=== PATIENT | female | born 1985 | race African-American/Black ===

== ENCOUNTER 2018-10-01 10:46 | Outpatient (CLI) | payer OTHER ==
--- NOTE | 2018-10-01 12:18 | Ultrasound Report ---
BILATERAL DIGITAL DIAGNOSTIC MAMMOGRAM WITH CAD -- 10/01/2018 RIGHT LIMITED BREAST ULTRASOUND INDICATION: History of right breast mass for several years, increasing in size, previously recommende d for biopsy TECHNIQUE: Digital bilateral mammographic imaging was performed. Limited ultrasound was performed. T his examination was interpreted with the benefit of Computer-Aided Detection (CAD) analysis. COMPARISON: None available FINDINGS: Breast Density: The breasts are extremely dense, which lowers the sensitivity of mammography. There is no evidence of dominant mass, suspicious calcifications or architectural distortion in the l eft breast. A huge lobular mass is seen in the area of palpable concern in the 12:00 position of the right breast measuring roughly 10.8 cm in length. Borders in most areas appear smoothly demarcated th ough due to the prominent surrounding breast density not all borders are well evaluated. Ultrasound Findings: Targeted ultrasound evaluation was performed of the area of interest. The huge palpable mass is noted sonographically in the 12:00 position. Due to the size measurements are diffi cult but this is seen to measure at least 5.2 cm in length. Borders appear lobular but in most areas are smoothly demarcated. Internal density of this solid mass is heterogenous. A central area of shado wing is seen but most of the mass does not show shadowing and some through transmission is noted. IMPRESSION: Huge lobular mass is seen in the area of palpable concern. Though this could be a giant f ibroadenoma, biopsy is recommended. BI-RADS Category 4: Suspicious for Malignancy. A "normal" or negative report should not discourage follow up or biopsy of a clinically significant f inding. A written summary of these findings will be mailed to the patient. The patient will be entered into a mammography reporting system which will generate a reminder letter for the patient's next appointmen t at the appropriate interval. According to the [employer], yearly mammograms are recommended starting at age 40 and continuing as long as a woman is in good health. Breast MRI is recommended for women with an wayne roximately 20-25% or greater lifetime risk of breast cancer, including women with a strong family his tory of breast or ovarian cancer and women who have been treated for Hodgkin's disease. Signer Name: Chris Shah MD Signed: 10/01/2018 12:13 PM Workstation Name: [id number]
== END 2018-10-01 10:47 | disposition home or self-care (01) ==
LOC: SPVWC 10:46
PROVIDERS: ATTEND Family Medicine
DX: N63.41 Unspecified lump in right breast, subareolar (principal)
CPT/HCPCS: 77066

== ENCOUNTER 2018-11-05 10:49 | Outpatient (CLI) | payer OTHER ==
--- NOTE | 2018-11-05 12:50 | Mammography Report ---
RIGHT DIGITAL DIAGNOSTIC MAMMOGRAM CLINICAL: For clip placement after ultrasound guided needle biopsy. COMPARISON: 10/01/2018 FINDINGS: A biopsy clip is identified in the upper outer quadrant and correlates with the biopsied ma ss. IMPRESSION: Concordant clip deployment. Signer Name: Jerman Miller MD Signed: 11/05/2018 12:46 PM Workstation Name: [id number]
--- NOTE | 2018-11-05 13:52 | Ultrasound Report ---
ULTRASOUND-GUIDED NEEDLE CORE BIOPSY RIGHT BREAST WITH CLIP PLACEMENT CLINICAL: A 10.8 cm right breast mass at 12:00. FINDINGS: The procedure was explained to the patient and informed consent was obtained. Ultrasound demonstrated the previously identified mass. I marked the breast with a felt tip marker and a timeout was called. The skin was prepped with Chloro -Prep and anesthetized with 1% lidocaine. Needle core biopsy was performed through a small dermatotomy using ultrasound guidance, 2% lidocaine with epinephrine for deep anesthesia and a 14-gauge Achieve biopsy device. 4 cores were obtained and placed in formalin. A clip was deployed within the lesion. The patient tolerated the procedure well and there were no apparent complications. Hemostasis was ach ieved with minimal effort and a sterile dressing was applied. A post procedure mammogram demonstrated concordant clip deployment. She left the department in good c ondition and was given instructions for wound care and follow-up. IMPRESSION: Uncomplicated ultrasound guided needle core biopsy with clip placement right breast. Signer Name: Jerman Miller MD Signed: 11/05/2018 1:47 PM Workstation Name: [id number]
== END 2018-11-05 10:50 | disposition home or self-care (01) ==
LOC: SPVWC 10:49
PROVIDERS: ATTEND Family Medicine
DX: N63.11 Unspecified lump in the right breast, upper outer quadrant (principal); D24.1 Benign neoplasm of right breast
CPT/HCPCS: 88305

== ENCOUNTER 2020-07-05 03:44 | Inpatient (IN) | payer OTHER ==
[2020-07-05] MEDS ORDERED: OXYTOCIN DRIP 30,000 MILLIUNITS/500 ML BAG IV ONE (04:02)
[2020-07-05] MEDS ORDERED: MINERAL OIL 30 ML ORAL LIQD ONE (04:02)
[2020-07-05] MEDS ORDERED: LIDOCAINE (2%) 20 MG/1 ML VIAL 20 ML MDV INFILTRATI ONE ×2 (04:03→04:47)
[2020-07-05] MEDS ORDERED: LACTATED RINGERS 1,000 ML ONE (04:26)
[2020-07-05] MEDS ORDERED: BUTORPHANOL 2 MG/1 ML INJ IV PRN (04:47)
[2020-07-05] MEDS ORDERED: fentaNYL 100 MCG/2 ML INJ IV PRN (04:47)
[2020-07-05] MEDS ORDERED: TERBUTALINE 1 MG/1 ML INJ SUB-Q PRN (04:47)
[2020-07-05] MEDS ORDERED: ePHEDrine SULFATE 50 MG/1 ML INJ IV PRN (04:47)
[2020-07-05] MEDS ORDERED: ONDANSETRON 4 MG/2 ML INJ IV PRN (04:47)
[2020-07-05] MEDS ORDERED: MINERAL OIL 30 ML ORAL LIQD PO PRN (04:47)
[2020-07-05] MEDS ORDERED: LACTATED RINGERS 1,000 ML IV SCH (05:00)
[2020-07-05] MEDS ORDERED: OXYTOCIN DRIP 30 UNITS/500 ML BAG IV SCH ×2 (05:00)
[2020-07-05 05:39] LABS: Hematocrit 35.2 % (30.3-42.9); Mean Corpuscular HGB Conc 34 % (30-34); Mean Corpuscular Volume 88 fl (79-97); Platelet Count 264 K/mm3 (140-440); Red Cell Distribution Width 13.7 % (13.2-15.2)
[2020-07-05] MEDS ORDERED: WITCH HAZEL/ GLYCERIN PAD TP PRN (06:54)
[2020-07-05] MEDS ORDERED: oxyCODONE /ACETAMINOPHEN 5-325MG TAB PO PRN (06:54)
[2020-07-05] MEDS ORDERED: LANOLIN/ZINC/DIMETHICONE (LANSINOH) 7 GM TP PRN (06:54)
[2020-07-05] MEDS ORDERED: diphenhydrAMINE 25 MG CAP PO PRN (06:54)
[2020-07-05] MEDS ORDERED: PROMETHAZINE 25 MG TAB PO PRN (06:54)
[2020-07-05] MEDS: IBUPROFEN 600 MG TAB PO SCH (07:11)
--- NOTE | 2020-07-05 08:27 | History and Physical Report ---
History of Present Illness Date of examination: 07/05/20 Date of admission: 07/05/20 04:47 Chief complaint: Active labor History of present illness: 35 yo, G1 @ 39.4 wks, initiated care with [facility] in first trimester. Her has been complicated by AMA and UTI. Care was co-managed by [facility]. She presents to [facility] with reports of regular painful ctxs for past couple of hours and found to have cervical dilation of 8cm. Reports +FM. D enies any VB or LOF. Labs: O+, antibody negative; HBgAs negative; Rubella immune; HIV negative; Gc/C hlamydia/Trich negative; 1 hr gtt-125; GBS negative Past History Past Medical History: no pertinent history Social history: full code. denies: smoking, alcohol abuse, prescription drug abuse, IV drug use - Obstetrical History Expected Date of Delivery: 07/08/20 Actual Gestation: 39 Week(s) 4 Day(s) : 1 Para: 0 Hx # Term Pregnancies: 0 Number of Pregnancies: 0 Spontaneous Abortions: 0 Induced : 0 Number of Living Children: 0 Medications and Allergies Allergies Allergy/AdvReac Type Severity Reaction Status Date / Time Latex, Natural Rubber Allergy Rash Verified 07/05/20 04:40 Home Medications Medication Instructions Recorded Confirmed Last Taken Type Pnv Plus Multivit Tab 1 mg PO DAILY 07/05/20 07/05/20 07/04/20 08:00 History Active Meds: Active Medications Bisacodyl (Bisacodyl 10 Mg Rect Supp) 10 mg ME BID PRN PRN Reason: Constipation Butorphanol Tartrate (Butorphanol 2 Mg/1 Ml Inj) 2 mg IV Q2H PRN PRN Reason: Pain , Severe (7-10) Diphenhydramine HCl (Diphenhydramine 25 Mg Cap) 25 mg PO Q6H PRN PRN Reason: Itching Ephedrine Sulfate (Ephedrine Sulfate 50 Mg/1 Ml Inj) 10 mg IV Q2M PRN PRN Reason: Hypotension Fentanyl (Fentanyl 100 Mcg/2 Ml Inj) 100 mcg IV Q2H PRN PRN Reason: Pain,Severe (7-10) LABOR PAIN Last Admin: 07/05/20 05:15 Dose: 100 mcg Documented by: Oxytocin/Sodium Chloride (Pitocin/Ns 30 Unit/500ml) 30 units in 500 mls @ 2 mls/hr IV TITR FRANDY; Protocol Lactated Ringer's (Lactated Ringers) 1,000 mls @ 125 mls/hr IV DIRECT FRANDY Last Admin: 07/05/20 04:30 Dose: 125 mls/hr Documented by: Oxytocin/Sodium Chloride (Pitocin/Ns 30 Unit/500ml) 30 units in 500 mls @ 40 mls/hr IV TITR FRANDY; Protocol Last Admin: 07/05/20 06:40 Dose: 40 ml/hr, 40 mls/hr Documented by: Ibuprofen (Ibuprofen 600 Mg Tab) 600 mg PO Q6H FRANDY Last Admin: 07/05/20 07:11 Dose: 600 mg Documented by: Magnesium Hydroxide (Magnesium Hydroxide (Mom) Oral Liqd Udc) 30 ml PO HS PRN PRN Reason: Constipation Mineral Oil (Mineral Oil 30 Ml Oral Liqd) 30 ml PO QHS PRN PRN Reason: Constipation Last Admin: 07/05/20 06:12 Dose: 30 ml Documented by: Multi-Ingredient Ointment (Lanolin/Zinc/Dimethicone (Lansinoh) 7 Gm) 1 applic TP PRN PRN PRN Reason: Sore Nipples Multivitamins/Iron/Calcium ( Rio91-Py Fumarate-Folic Acid Vit Tab) 1 each PO QDAY FRANDY Ondansetron HCl (Ondansetron 4 Mg/2 Ml Inj) 4 mg IV Q8H PRN PRN Reason: Nausea And Vomiting Last Admin: 07/05/20 05:15 Dose: 4 mg Documented by: Oxycodone/Acetaminophen (Oxycodone /Acetaminophen 5-325mg Tab) 1 tab PO Q6H PRN PRN Reason: Pain, Moderate (4-6) Promethazine HCl (Promethazine 25 Mg Tab) 25 mg PO Q6H PRN PRN Reason: Nausea And Vomiting Sodium Chloride (Sodium Chloride 0.9% 10 Ml Flush Syringe) 10 ml IV PRN NR Stop: 07/08/20 06:59 Terbutaline Sulfate (Terbutaline 1 Mg/1 Ml Inj) 0.25 mg SUB-Q ONCE PRN PRN Reason: Hyperstimulation/Hypertonicity Witch Connie/Glycerin (Witch Connie/ Glycerin Pad) 1 each TP PRN PRN PRN Reason: Hemorrhoid/cleansing/soothing Review of Systems All systems: negative Genitourinary: contractions - Vital Signs Vital signs: Vital Signs Temp Pulse Resp BP Pulse Ox 98 F 83 18 118/60 94 07/05/20 05:00 07/05/20 05:00 07/05/20 05:00 07/05/20 05:00 07/05/20 05:00 Temp Pulse Resp BP Pulse Ox 98.2 F 42 L 15 122/60 79 L 07/05/20 07:07 07/05/20 07:15 07/05/20 07:07 07/05/20 07:07 07/05/20 07:15 - Physical Exam Breasts: Positive: normal Cardiovascular: Regular rate Lungs: Positive: Normal air movement Abdomen: Positive: other (gravid) Genitourinary (Female): Positive: normal external genitalia, normal perenium Vagina: Positive: normal moisture Uterus: Positive: enlarged (S=D) Extremities: Positive: normal Deep Tendon Reflex Grade: Normal +2 - Obstetrical FHR: category 1 Uterine Contraction Monitor Mode: External Cervical Dilatation: 8 (Vertex) Cervical Effacement Percentage: 80 station: 0 Uterine Contraction Frequency (min): 2-3 Uterine Contraction Pattern: Regular Uterine Tone Measurement Phase: Resting Uterine Contraction Intensity: Strong/Firm Results Result Diagrams: 07/05/20 04:20 Abnormal lab results 07/05/20 Range/Units 04:20 WBC 12.6 H (4.5-11.0) K/mm3 All other labs normal. Assessment and Plan - Patient Problems (1) Active labor at term Current Visit: Yes Status: Acute Plan to address problem: Admit to L & D AROM @ 0452, clear fluids, tolerated well Pain meds as desired Anticipate (2) Advanced maternal age (AMA) in Current Visit: Yes Status: Acute
--- NOTE | 2020-07-05 08:32 | Procedure Note ---
OB Delivery Note - Delivery Date of Delivery: 07/05/20 (0614) Estimated blood loss: 300cc - Vaginal Delivery presentation: vertex Delivery position: OA (MILADYS) Intrapartum events: none Delivery induction: none Delivery augmentation: rupture of membranes (0452, clear fluids) Delivery monitor: external FHT, external uterine Route of delivery: Delivery placenta: spontaneous (0622, galindo) Delivery cord: 3 umbilical vessels Episiotomy: none Delivery laceration: 2nd degree Delivery repair: vicryl (3.0 - CT) Anesthesia: local Delivery comments: of viable, crying female placed directly to maternal abdomen. Cord double clamped, cut by FOB after cessation of pulsation. Cord blood collected. Uterus firm @ U-3, hemostasis maintained. Perineum with second degree laceration, repaired. Mother and baby safe, stable and left in care of RN. - Infant A at 1 minute: 8 at 5 minutes: 9 Infant Gender: Female (Weight: 4255gms (9lbs 6ozs) 21 inches)
[2020-07-05] MEDS: PRENATAL VIT27-FE FUMARATE-FOLIC ACID VIT TAB PO SCH (18:43)
[2020-07-05 20:10] LABS: Hematocrit 31.9 % (30.3-42.9)
[2020-07-05] MEDS ORDERED: MAGNESIUM HYDROXIDE (MOM) ORAL LIQD UDC PO PRN (22:00)
[2020-07-06] MEDS: IBUPROFEN 600 MG TAB PO SCH ×5 (01:09→23:43)
--- NOTE | 2020-07-06 07:48 | Progress Note ---
Assessment and Plan - Patient Problems (1) Active labor at term Current Visit: Yes Status: Acute (2) Advanced maternal age (AMA) in Current Visit: Yes Status: Acute (3) Urinary retention Current Visit: Yes Status: Acute Plan to address problem: Voiding trial this morning Subjective - Subjective Date of service: 07/06/20 Principal diagnosis: s/p at term, AMA Interval history: Pt feeling well but unable to void six hours after delivery, so park catheter placed overnight. Decreasing lochia. Patient reports: appetite normal, ambulating normally, no voiding normally (park in place ) : doing well Objective - Vital Signs Latest vital signs: Vital Signs Temp Pulse Resp BP Pulse Ox 07/06/20 05:22 14 07/05/20 17:39 20 07/05/20 16:39 98.4 F 82 18 112/67 98 Intake and Output 07/05/20 07/06/20 07/06/20 22:59 06:59 14:59 Intake Total 360 Output Total 800 Balance -440 Intake: Intake, Free Water 360 Output: Urine 800 Indwelling Catheter 800 Other: Total, Output Amount 800 - Exam Breasts: Present: deferred Abdomen: Present: soft Uterus: Present: normal, fundal height at umbilicus Extremities: Present: normal
[2020-07-06] MEDS: PRENATAL VIT27-FE FUMARATE-FOLIC ACID VIT TAB PO SCH (10:57)
[2020-07-07] MEDS: IBUPROFEN 600 MG TAB PO SCH (05:35)
[2020-07-07] MEDS ORDERED: IBUPROFEN 600 MG TAB PO SCH (06:00)
[2020-07-07] MEDS ORDERED: BENZOCAINE/MENTHOL 20/0.5% TOP SPRAY 56 GM TP PRN (08:02)
--- NOTE | 2020-07-07 08:06 | Progress Note ---
Assessment and Plan A: PPD2 s/p at term. AMA s/p urinary retention P: Continue with routine care with anticipated discharge this emmanuel cartagena. Subjective - Subjective Date of service: 07/07/20 Principal diagnosis: s/p at term, AMA Interval history: PPD2 s/p at term. Patient is feeling well and currently bondign with infant. Reports adequate pain control, decreasing lochia and voiding without complication. Patient reports: appetite normal, voiding normally, pain well controlled, ambulating normally [place]: doing well Objective - Vital Signs Latest vital signs: Vital Signs Temp Pulse Resp BP BP Pulse Ox 07/07/20 00:15 97.8 F 78 16 90/53 97 07/06/20 16:15 97.8 F 88 18 89/58 07/06/20 08:50 98 F 60 20 118/60 Intake and Output 07/06/20 07/07/20 07/07/20 23:59 07:59 15:59 Intake Total 320 480 Output Total 520 Balance -200 480 Intake: Oral 320 120 Intake, Free Water 360 Output: Urine 520 Void 520 Other: Total, Intake Amount 320 120 Total, Output Amount 100 # Voids Void 1 1 - Exam Uterus: Present: normal, fundal height below umbilicus
--- NOTE | 2020-07-07 08:09 | Discharge Summary ---
Providers - Providers Date of Admission: 07/05/20 04:47 Date of discharge: 07/07/20 Attending physician: DARRIAN FONTENOT 07/05/20 06:57 Consult to Painter Set [CONS] Routine Reason For Exam: assistance with , SNS Primary care physician: DARRIAN FONTENOT Hospitalization Reason for admission: active labor, IUP at term Delivery: Episiotomy: none Laceration: 2nd degree Other procedures: none complications: other (urinary retention ) Discharge diagnosis: IUP at term delivered [place] baby: female Disposition: DC- TO HOME OR SELFCARE Plan - Discharge Medications Prescriptions: Ibuprofen [Motrin] 600 mg PO Q6H PRN #30 tablet PRN Reason: Pain HYDROcodone/APAP 5-325 [[place] 5/325] 1 each PO Q6HR PRN #10 tablet PRN Reason: Pain - Provider Discharge Summary Activity: no sex for 6 weeks, no heavy lifting 4 weeks, no strenuous exercise Diet: routine Instructions: routine Additional instructions: [] Smoking cessation referral if applicable(refer to patient education folder for contact #) [] Refer to [facility]'s [facility] Booklet Call your doctor immediately for: * Fever > 100.5 * Heavy vaginal bleeding ( >1 pad per hour) * Severe persistent headache * Shortness of breath * Reddened, hot, painful area to leg or breast * Drainage or odor from incision. * Keep incision clean and dry at all times and follow doctor's instructions regarding bathing/showering - Follow up plan Follow up: DARRIAN FONTENOT MD [Primary Care Provider] - 08/02/20
[2020-07-07] MEDS: PRENATAL VIT27-FE FUMARATE-FOLIC ACID VIT TAB PO SCH (10:16)
[2020-07-07 13:28] VITALS: BP 93/58
== END 2020-07-07 14:05 | disposition home or self-care (01) | DRG 807 ==
LOC: TRG 03:44 → APU 03:45 → LD 04:29 → TRG 04:47 → OB 07:29
PROVIDERS: ADMIT Obstetrics & Gynecology; ATTEND Obstetrics & Gynecology
PROC: 10E0XZZ Delivery of Products of Conception, External Approach (ICD-10-PCS; principal; 2020-07-05)
PROC: 0KQM0ZZ Repair Perineum Muscle, Open Approach (ICD-10-PCS; 2020-07-05)
PROC: 10907ZC Drainage of Amniotic Fluid, Therapeutic from Products of Conception, Via Natural or Artificial Opening (ICD-10-PCS; 2020-07-05)
DX: O70.1 Second degree perineal laceration during delivery (principal); Z37.0 Single live birth; Z3A.39 39 weeks gestation of pregnancy; R33.9 Retention of urine, unspecified; Z20.822 Contact with and (suspected) exposure to COVID-19
CPT/HCPCS: 36415; 85014; 85018; 85027; 86850; 86900; 86901; 96360; G0378; J2405; J2590; J3010; J7120; U0003

== ENCOUNTER 2020-10-07 14:53 | Outpatient (CLI) | payer OTHER ==
--- NOTE | 2020-10-07 16:43 | Mammography Report ---
BILATERAL DIGITAL DIAGNOSTIC MAMMOGRAM WITH CAD -- 10/07/2020 RIGHT LIMITED BREAST ULTRASOUND INDICATION: Patient presents for follow-up following benign right breast biopsy performed in 2018, wi th pathology demonstrating fibroadenoma. Patient is currently breast-feeding. TECHNIQUE: Digital bilateral mammographic imaging was performed. Limited ultrasound was performed. T his examination was interpreted with the benefit of Computer-Aided Detection (CAD) analysis. COMPARISON: Prior mammograms 11/05/2018 and 10/01/2018, and right breast ultrasound 10/01/2018 FINDINGS: Breast Density: The breasts are extremely dense, which lowers the sensitivity of mammography. MAMMOGRAPHIC FINDINGS: There is no evidence of dominant mass, suspicious calcifications or architectu ral distortion in the left breast. Redemonstration of a biopsy clip along the superior margin of the previously biopsied fibroadenoma in the 12:00 position of the right breast. The mass is difficult to delineate on 2-D mammogram secondary to the extremely dense fibroglandular tissue, therefore targeted ultrasound was performed for further evaluation. ULTRASOUND FINDINGS: Targeted ultrasound evaluation was performed of the area of interest. The prev iously biopsied mass in the right breast 12:00 position located 5 cm from the nipple appears similar to slightly decreased in size compared with prior ultrasound, currently measuring up to 4.7 x 2.8 x 4 .3 cm, previously 5.2 x 2.6 x 4.7 cm. The mass has, however, undergone cystic degeneration, and now d emonstrates a more complex cystic and solid appearance. IMPRESSION: 1. The previously biopsied mass in the 12:00 right breast is overall similar to slightly decreased in size from prior examination. However, the mass has undergone cystic degeneration, and now has a comp pako cystic and solid appearance. Given this change in appearance, a repeat biopsy versus surgical exc ision should be considered. Follow up recommendation: Surgical consult BI-RADS Category 4: Suspicious for Malignancy. A "normal" or negative report should not discourage follow up or biopsy of a clinically significant f inding. A written summary of these findings will be mailed to the patient. The patient will be entered into a mammography reporting system which will generate a reminder letter for the patient's next appointmen t at the appropriate interval. According to the [employer], yearly mammograms are recommended starting at age 40 and continuing as long as a woman is in good health. Breast MRI is recommended for women with an wayne roximately 20-25% or greater lifetime risk of breast cancer, including women with a strong family his tory of breast or ovarian cancer and women who have been treated for Hodgkin's disease. Signer Name: Dory Cuevas MD Signed: 10/07/2020 4:39 PM Workstation Name: [id number]
== END 2020-10-07 14:54 | disposition home or self-care (01) ==
LOC: SPVWC 14:53
PROVIDERS: ATTEND Surgery
DX: N63.12 Unspecified lump in the right breast, upper inner quadrant (principal); N60.21 Fibroadenosis of right breast
CPT/HCPCS: 77066